=== PATIENT | female | born 1995 | race Caucasian/White ===

== ENCOUNTER 2016-04-15 20:17 | Emergency (ER) | payer OTHER | END 2016-04-16 01:31 | disposition home or self-care (01) | LOC: ER 20:17 | DX: N93.9 Abnormal uterine and vaginal bleeding, unspecified (principal); R10.2 Pelvic and perineal pain; O20.0 Threatened abortion | CPT/HCPCS: 36415; 76817; 80053; 81001; 83690; 84702; 84703; 85025; 86901; 87088; 87491; 87591; 87800 ==